=== PATIENT | female | born 1975 | race Caucasian/White ===

== ENCOUNTER 2017-09-26 14:24 | Emergency (ER) | payer OTHER, BC ==
[2017-09-26 14:27] VITALS: TEMP 96.7
[2017-09-26] MEDS ORDERED: KETOROLAC TROMETHAMINE 30 MG/ML SOL IM ONE (15:12)
[2017-09-26] MEDS ORDERED: KETOROLAC TROMETHAMINE 30 MG/ML SOL ONE (15:15)
[2017-09-26 15:54] VITALS: BP 146/88; PULSE 75; RESP 16; O2SAT 100
== END 2017-09-26 15:50 | disposition home or self-care (01) | DRG 563 ==
LOC: ED 14:24
DX: S93.401A Sprain of unspecified ligament of right ankle, initial encounter (principal); W00.0XXA Fall on same level due to ice and snow, initial encounter
CPT/HCPCS: 73590; 73610; 99283; J1885